=== PATIENT | male | born 1990 | race African-American/Black ===

== ENCOUNTER 2017-11-11 09:42 | Emergency (ER) | payer OTHER ==
[2017-11-11 09:57] VITALS: BP 121/75
[2017-11-11] MEDS ORDERED: DEXAMETHASONE 10 MG/ML VIAL PO STA (10:09)
--- NOTE | 2017-11-11 10:11 | ED Physician Documentation ---
History of Present Illness - Stated complaint Stated Complaint: MALE - Chief complaint Chief Complaint: General - Additonal information Additional information: hx from pt healthy 26 y/o AD male numerous bug bites while on plane flight home - swollen and icthy this AM developed tight swelling or the foreskin causing penile retraction no lesions, no dc, no bleeding, no trauma, states no recent sexual activity he attributes sx to a work out supplement but he has been taking that for months s adverse rxn diff to urinate Review of Systems Constitutional: denies: Fever Cardiac: denies: Chest pain / pressure Respiratory: denies: Dyspnea GI: denies: Abdominal Pain : reports: Other (phimosis) Skin: reports: Rash PD PAST MEDICAL HISTORY - Present Medications Home Medications: Ambulatory Orders Medication Instructions Recorded Confirmed No Known Home Medications [No 11/11/17 11/11/17 Known Home Medications] - Allergies Allergies/Adverse Reactions: Allergies Allergy/AdvReac Type Severity Reaction Status Date / Time No Known Drug Allergies Allergy Verified 11/11/17 09:57 PD ED PE NORMAL - Vitals Vital signs reviewed: Yes - Neck Neck: Supple, no meningeal sign - Cardiac Cardiac: RRR - Respiratory Respiratory: No respiratory distress, Clear bilaterally - Abdomen Abdomen: Soft, Non tender - Male Male : [employer]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 ), Other (testes desc NT, no lesions, no dc, tight swollen foreskin, meatus barely vis, no redness or warmth) - Neuro Neuro: Alert and oriented X 3 Results - Vitals Vitals: Vital Signs - 24 hr 11/11/17 09:53 Temperature 36.7 C Heart Rate 74 Respiratory 16 Rate Blood Pressure 121/75 O2 Saturation 100 Oxygen O2 Source Room air PD MEDICAL DECISION MAKING - ED course ED course: acute foreskin swelling with resultant phimosis - no evidence on exam of STD balantitis trauma etc, could be secondary to his numerous insect bites - will try a dose of decadron and obs - if resolved will dc - if worsens or compromises ability to urinate will need to transfer to a facility with urology pt went to give a urine sample and his phimosis spont reduced - I rechecked him - no paraphimosis now either - will dc Departure - Departure Disposition: 01 Home, Self Care Clinical Impression: Phimosis Condition: Good Follow-Up: BUSHRA Mckenna [Provider Group] Comments: If the symptoms return you will need to see a urologist - we do not have a urologist at [facility] so your doctors at [facility] would need to refer you out. If the symptoms are severe you should return to the ER for emergent acre and transfer if needed
== END 2017-11-11 10:39 | disposition home or self-care (01) ==
LOC: ED 09:42
DX: N47.1 Phimosis (principal)
CPT/HCPCS: 99283

== ENCOUNTER 2020-07-10 14:40 | Outpatient (CLI) | payer OTHER ==
--- NOTE | 2020-07-10 15:31 | SLEEP CARE CONSULTATION ---
Information from patient questionnaire entered by Soco Boyle. I have reviewed and concur with the information entered by Soco Boyle. This document represents the service I personally performed and the decisions made by me, Uche Bautista MD, [facility]. History of Present Illness Service Date and Time: 07/10/2020 1440 Reason for Visit: New patient Chief Complaint: reports: Snoring, Observed pauses in breathing, Frequent awakenings at night Date of Onset: 2-3+ years Usual bedtime: 7913-4635 Time it takes to fall asleep: 5-10 minutes Snores at night: Yes Observed to quit breathing while asleep: Yes Sleeps alone due to snoring: No Number of times waking at night: 2-3 Reasons for waking at night: reports: Snoring Toss, Turn, or Twitch while sleeping: Yes Recalls having dreams: No Usually gets out of bed at: 1030 Feels refreshed in the morning: Yes (sometimes) Morning headache: No Sleepy or fatigued during the day: Yes (sometimes) Ever fallen asleep while driving: Yes Takes day naps: Yes (sometimes) Dreams during day naps: No Prior sleep studies: No Additional HPI information: I had the pleasure of seeing Mr. De Anda today regarding the possibility of him having a sleep disorder. As you know, he is a 29 year old gentleman who complains of loud snore, observed apneas, and frequent awakenings for the past 2 3 years. He also has had excessive daytime sleepiness to the point of falling asleep while driving. During the day he complains of feeling does not feel sleepy and fatigued. His score on [place] Sleepiness Scale is 17 out of 24. Subjective Initial [place] Sleepiness Scale score: 18 (in 2020) Social History The patient's occupation is active . Patient is Single and lives in [place]. Have you smoked in the past 12 months: No Alcohol use: Yes Alcohol amount and frequency: 1-2 drinks, every 3 months if that rarely Caffeine use: Yes Family History Family history of sleep disordered breathing: No Allergies and Home Medications Drug allergies reviewed: Yes (NKDA) Home medication list reviewed: Yes (none) Review of Systems Weight gain over past 5 years: 20 Cardiovascular: denies: high blood pressure, palpitations, chest pain, irregular heart rate or pulse, leg or foot swelling, have to sleep sitting up, other Respiratory: denies: shortness of breath, wheeze, sputum production, chronic cough, other Gastrointestinal: denies: heartburn, difficulty swallowing, nausea, vomitting, diarrhea, abdominal pain, other Urinary: denies: incontinence, frequency, urgency, impotence, other Neurological: denies: headaches, seizure, head trauma, disorientation, speech dysfunction, gait or balance problems, fainting or unconsciousness, other Ear/Nose/Throat: denies: nasal congestion, sinus problems, nose bleeds, dry mouth/throat, hoarseness, injury to nose, tonsillectomy, wisdom teeth removed, other Endocrine: denies: thyroid disease, history of goiter, sluggishness, too hot or cold, excessive thirst, increased appetite, increased urination, unexplained weakness, other Musculoskeletal: reports: joint pain, back pain, muscle pain or cramping Immunologic: denies: sneezing, rash, itching, allergies to food or environment, other Physical Exam Vital signs obtained and entered by: To minimize the risk of COVID-19 exposure, detailed exam was not performed. Height: 5 ft 8 in Weight: 210 lb Body Mass Index: 31.9 BMI Classification: Obese Impression and Plan IMPRESSION: 1. Obstructive Sleep Apnea-Hypopnea Syndrome, as suggested by history of loud and irregular snoring, observed cessation of breath while asleep, unrefreshed sleep, cognitive impairment, and daytime hypersomnolence. Narrow oropharynx and obesity are common predisposing factors for obstructive sleep apnea-hypopnea syndrome. Pathophysiology of sleep-disordered breathing was discussed. I recommend proceeding to polysomnography to confirm the diagnosis and to assess severity. If he has significant sleep disordered breathing, a manual CPAP titration study will also be performed to find the optimal treatment pressure. I informed the patient of what the sleep studies involve and after some discussion, he agreed to proceed. Plan: 1. Schedule polysomnography + manual CPAP titration study 2. Avoid long distance driving or when feeling sleepy. 3. Avoid alcohol, sedative and muscle relaxant around bedtime. 4. Attempt to lose weight. 5. Return in 1 to 2 weeks after the study to discuss results and initiate therapy. Visit Type: In Office Time Spent with Patient (minutes): 15 Provider Statement: I spent 100% of the Face to Face Visit with the patient with greater than 50% spent counseling the patient and coordination of care.
== END 2020-07-10 14:41 | disposition home or self-care (01) ==
LOC: SC 14:40
PROVIDERS: ATTEND Internal Medicine Pulmonary Disease
DX: R06.83 Snoring (principal); R06.81 Apnea, not elsewhere classified; G47.10 Hypersomnia, unspecified; E66.9 Obesity, unspecified; Z68.31 Body mass index [BMI] 31.0-31.9, adult
CPT/HCPCS: 99203; 99212

== ENCOUNTER 2020-08-12 19:02 | Outpatient (CLI) | payer OTHER | END 2020-08-12 19:03 | disposition home or self-care (01) | LOC: SC 19:02 | PROVIDERS: ATTEND Internal Medicine Pulmonary Disease | DX: R06.83 Snoring (principal); R06.81 Apnea, not elsewhere classified; G47.10 Hypersomnia, unspecified; E66.9 Obesity, unspecified; Z68.31 Body mass index [BMI] 31.0-31.9, adult | CPT/HCPCS: 95810 ==

== ENCOUNTER 2020-08-21 15:26 | Outpatient (CLI) | payer OTHER ==
--- NOTE | 2020-08-21 15:45 | SLEEP CARE CONSULTATION ---
Information from patient questionnaire entered by Aysha Aguilar. I have reviewed and concur with the information entered by Aysha Aguilar. This document represents the service I personally performed and the decisions made by me, Uche Bautista MD, [facility]. History of Present Illness Service Date and Time: 08/21/2020 1526 Initial [place] Sleepiness Scale score: 18 (in 2020) Current [place] Sleepiness Scale score: 18 Additional HPI information: HPI: Mr. De Anda returns for a follow up of the sleep study he had on 08/12/2020. The polysomnography showed that the sleep architecture was normal as well. Respiratory monitoring showed no significant sleep disordered breathing (AHI = 1.3) or hypoxia (donato oxygen saturation of 91%). The patient slept adequately in supine position (supine AHI = 1.5; non-supine = 0.63). Snore was moderate to loud in intensity. There was no significant periodic leg movement of sleep. Cardiac rhythm was normal sinus rhythm without significant arrhythmia. No abnormal behavior (parasomnia) observed during the night. The patient was informed of these findings. I explained to him that the sleep study was normal. Sleep Study - Results Type of Sleep Study: Polysomnography Prior sleep studies: No Allergies and Home Medications Drug allergies reviewed: Yes Home medication list reviewed: Yes Review of Systems Review of systems same as previous: Yes Physical Exam Vital signs obtained and entered by: To minimize the risk of COVID-19 exposure, detailed exam was not performed. Height: 5 ft 8 in Weight: 210 lb Body Mass Index: 31.9 BMI Classification: Obese Impression and Plan IMPRESSION: 1. Primary Snore (ICD-10 R06.83), moderate, but no sleep-disordered breathing. His excessive daytime sleepiness most likely is due to shift work. The patient is now on day shift only and will go into [employer] status. PLAN: 1. No treatment is indicated. 2. Avoid weight gain 3. Return for follow up on as needed basis. Visit Type: In Office Time Spent with Patient (minutes): 15 Provider Statement: I spent 100% of the Face to Face Visit with the patient with greater than 50% spent counseling the patient and coordination of care.
== END 2020-08-21 15:27 | disposition home or self-care (01) ==
LOC: SC 15:26
PROVIDERS: ATTEND Internal Medicine Pulmonary Disease
DX: R06.83 Snoring (principal); G47.10 Hypersomnia, unspecified; E66.9 Obesity, unspecified; Z68.31 Body mass index [BMI] 31.0-31.9, adult
CPT/HCPCS: 99212; 99213